=== PATIENT | male | born 1985 | race Caucasian/White ===

== ENCOUNTER 2017-02-26 19:29 | Emergency (ER) | payer OTHER | END 2017-02-26 21:54 | disposition left against medical advice (07) | LOC: UCCORT 19:29 | DX: L72.9 Follicular cyst of the skin and subcutaneous tissue, unspecified (principal); Z53.21 Procedure and treatment not carried out due to patient leaving prior to being seen by health care provider ==

== ENCOUNTER 2017-02-27 08:40 | Emergency (ER) | payer BC, OTHER ==
--- NOTE | 2017-02-27 09:11 | UC ---
Skin Complaint HPI - HPI Summary HPI Summary: 1 week history of sore nodule on back. History of past I+D of infected sebaceous cyst. - History of Current Complaint Chief Complaint: UCSkin Time Seen by Provider: 02/27/17 09:01 Stated Complaint: SKIN COMPLAINT Hx Obtained From: Patient Onset/Duration: Sudden Onset, Lasting Days - about 7 Onset Severity: Mild Current Severity: Mild Location: Other - left mid back. Character: Raised, Painful Aggravating: Touch Alleviating: Nothing Associated Signs & Symptoms: Positive: Negative Similar Episode/Dx as: infected cyst. - Allergy/Home Medications Allergies/Adverse Reactions: Allergies Allergy/AdvReac Type Severity Reaction Status Date / Time mold Allergy Unknown Uncoded 02/27/17 08:52 Reaction Details pollen Allergy Eyes Uncoded 02/27/17 08:51 Itchy/Swollen/Red/Watery Review of Systems Constitutional: Negative Skin: Negative Eyes: Negative ENT: Negative Respiratory: Negative Cardiovascular: Negative Gastrointestinal: Negative Genitourinary: Negative Motor: Negative Neurovascular: Negative Musculoskeletal: Other: - back injury with chronic pain. Neurological: Negative Psychological: Negative All Other Systems Reviewed And Are Negative: Yes PMH/Surg Hx/FS Hx/Imm Hx Previously Healthy: Yes - chronic back pain post injury Other History Of: Negative For: Anticoagulant Therapy - Surgical History Surgical History: Yes Surgery Procedure, Year, and Place: Vasectomy. Adenoidectomy, pe TUBES,. Epiditecomy. 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 Alcohol Use: Rare Substance Use Type: None Smoking Status (MU): Never Smoked Tobacco - Immunization History Most Recent Influenza Vaccination: no Physical Exam Triage Information Reviewed: Yes Appearance: Well-Appearing, No Pain Distress Vital Signs: Initial Vital Signs Temp 98 F 02/27/17 08:46 Pulse 61 02/27/17 08:46 Resp 18 02/27/17 08:46 BP 125/79 02/27/17 08:46 Vital Signs Reviewed: Yes Respiratory: Positive: Lungs clear, Normal breath sounds Cardiovascular: Positive: RRR, No Murmur Neurological Exam: Normal Neurological: Positive: Alert Psychological Exam: Normal Skin Exam: Other - left midback, 1.5cm area of erthema with nodule, moderate induration. Not at optimal stage for I+D. Course/Dx - Course Course Of Treatment: hot compress area until ready for I+D - Differential Diagnoses - Skin Complaint Differential Diagnoses: Cellulitis, Other - abscess - Diagnoses Provider Diagnoses: forming abscess mid back. Discharge - Discharge Plan Condition: Stable Disposition: HOME Patient Education Materials: Abscess (ED) Additional Instructions: The abscess on your back is not at an optimal time for incision and drainage. As discussed, you will return on Friday morning for I+D. There is not significant cellulitis and you do not need antibiotics at this time. Compress the area for 10 to 15 minutes with hot compresses 3 or 4 times per day.
[2017-02-27 09:20] VITALS: BP 125/79
== END 2017-02-27 09:31 | disposition home or self-care (01) ==
LOC: UCCORT 08:40
DX: L02.212 Cutaneous abscess of back [any part, except buttock and flank] (principal)
CPT/HCPCS: 99211; G0463

== ENCOUNTER 2017-03-02 18:36 | Emergency (ER) | payer BC ==
[2017-03-02 19:23] VITALS: BP 107/61
--- NOTE | 2017-03-02 20:02 | UC ---
Skin Complaint HPI - History of Current Complaint Chief Complaint: UCSkin Time Seen by Provider: 03/02/17 19:56 Stated Complaint: SKIN COMPLAINT Hx Obtained From: Patient Onset/Duration: Gradual Onset - over the past week, abscess on his back, Lasting Weeks - 1, Worse Since - onset Timing: Constant Onset Severity: Mild Current Severity: Moderate Location: Discrete - left middle lower back Character: Swelling, Pruritus Aggravating: Nothing Alleviating: Nothing Associated Signs & Symptoms: Negative: Fever, Chills, Drainage, Tenderness Similar Episode/Dx as: Boil - Allergy/Home Medications Allergies/Adverse Reactions: Allergies Allergy/AdvReac Type Severity Reaction Status Date / Time mold Allergy Unknown Uncoded 03/02/17 19:18 Reaction Details pollen Allergy Eyes Uncoded 03/02/17 19:18 Itchy/Swollen/Red/Watery Review of Systems All Other Systems Reviewed And Are Negative: Yes PMH/Surg Hx/FS Hx/Imm Hx Previously Healthy: Yes Other History Of: Negative For: Anticoagulant Therapy - Surgical History Surgical History: Yes Surgery Procedure, Year, and Place: Vasectomy. Adenoidectomy, pe TUBES,. Epiditecomy. Undescended Testicles as a child - Family History Known Family History: Positive: None, Other - Prostate cancer, asthma - Social History Occupation: Employed Full-time Lives: With Family Alcohol Use: Weekly Substance Use Type: None Smoking Status (MU): Never Smoked Tobacco Have You Smoked in the Last Year: No - Immunization History Most Recent Influenza Vaccination: no Physical Exam Triage Information Reviewed: Yes Appearance: Well-Appearing, No Pain Distress, Well-Nourished Vital Signs: Initial Vital Signs Temp 98.1 F 03/02/17 19:19 Pulse 55 03/02/17 19:19 Resp 16 03/02/17 19:19 BP 107/61 03/02/17 19:19 Pulse Ox 98 03/02/17 19:19 Vital Signs Reviewed: Yes Eyes: Positive: Conjunctiva Clear Neck exam: Normal Respiratory Exam: Normal Cardiovascular Exam: Normal Musculoskeletal Exam: Normal Neurological Exam: Normal Psychological Exam: Normal Skin: Positive: Other - 2.5x1.5 cm soft nodule in the left middle lower back, Non-tender, minimal redness. Course/Dx - Differential Diagnoses - Skin Complaint Differential Diagnoses: Abscess, Allergic Reaction, Cellulitis - Diagnoses Provider Diagnoses: Abscess posterior thorax. Discharge - Discharge Plan Condition: Stable Disposition: HOME Prescriptions: Sulfamethox/Trimethoprim DS* [Bactrim DS 800/160 TAB*] 1 tab PO BID #14 tab Patient Education Materials: Furunculosis and Carbunculosis (ED), Sulfamethoxazole/Trimethoprim (By mouth) Additional Instructions: Do warm packs on it at least twice a day.
[2017-03-02] MEDS ORDERED: Sulfamethox/Trimethoprim DS 800/160* TAB PO ONE (20:15)
== END 2017-03-02 20:25 | disposition home or self-care (01) ==
LOC: UCCORT 18:36
DX: L02.212 Cutaneous abscess of back [any part, except buttock and flank] (principal); T78.40XA Allergy, unspecified, initial encounter; X58.XXXA Exposure to other specified factors, initial encounter; L03.312 Cellulitis of back [any part except buttock and flank]
CPT/HCPCS: 99212; A9270-GY; G0463

== ENCOUNTER 2017-06-07 12:49 | Emergency (ER) | payer BC ==
[2017-06-07 16:13] VITALS: BP 118/67
--- NOTE | 2017-06-07 16:47 | UC ---
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 There is a red, spotted rash on the area behind his R ear. Pt states rash is "burning in sensation, sometimes itchy ". He has been using a steroid cream today that has been helping." Here with his Maria M who works at our facility. she is concerned about spider bite. dtr had similar thing and required prednisone oral to treat and requests the same. Used clobetisol topical with relief per Jay. denies swelling in lips, gums or throat. no cp or sob. no diarrhea. feels fine o/w. Leaving for [place] in AM and concerned about things worsening. [ End ] - History of Current Complaint Chief Complaint: UCSkin Time Seen by Provider: 06/07/17 16:12 Stated Complaint: BUG BITE/SKIN COMPLAINT NECK - Allergy/Home Medications Allergies/Adverse Reactions: Allergies Allergy/AdvReac Type Severity Reaction Status Date / Time mold Allergy Unknown Uncoded 03/02/17 19:18 Reaction Details pollen Allergy Eyes Uncoded 03/02/17 19:18 Itchy/Swollen/Red/Watery Home Medications: Home Medications Clobetasol Propionate 0.05 % EX DAILY 06/07/17 [History Confirmed 06/07/17] Review of Systems Constitutional: Negative Skin: Rash Eyes: Negative ENT: Negative Respiratory: Negative Cardiovascular: Negative Gastrointestinal: Negative Genitourinary: Negative Motor: Negative Neurovascular: Negative Musculoskeletal: Negative Neurological: Negative Psychological: Negative Is Patient Immunocompromised?: No All Other Systems Reviewed And Are Negative: Yes PMH/Surg Hx/FS Hx/Imm Hx Previously Healthy: Yes Other History Of: Negative For: Anticoagulant Therapy - Surgical History Surgical History: Yes Surgery Procedure, Year, and Place: Vasectomy. Adenoidectomy, pe TUBES,. Epiditecomy. Undescended Testicles as a child - Family History Known Family History: Positive: Other - Prostate cancer, asthma - Social History Alcohol Use: Weekly Substance Use Type: None Smoking Status (MU): Never Smoked Tobacco Have You Smoked in the Last Year: No - Immunization History Most Recent Influenza Vaccination: no Physical Exam Triage Information Reviewed: Yes Appearance: Well-Appearing, No Pain Distress, Well-Nourished Vital Signs: Initial Vital Signs Temp 99.7 F 06/07/17 16:07 Pulse 66 06/07/17 16:07 Resp 14 06/07/17 16:07 BP 118/67 06/07/17 16:07 Pulse Ox 99 06/07/17 16:07 Vital Signs Reviewed: Yes Eye Exam: Normal ENT Exam: Normal ENT: Positive: Other: - no swelling of lips, tongue or uvula. Neck exam: Normal Neck: Positive: Supple, Nontender, No Lymphadenopathy, Other: - right posterior neck with very mild area of patchy erythema in streak like fasion, about 2 inches long total. cool to touch, no streaks, no d/c. no pustules or vessicles. skin intact. Respiratory Exam: Normal Respiratory: Positive: Lungs clear, Normal breath sounds, No respiratory distress Cardiovascular Exam: Normal Cardiovascular: Positive: RRR, No Murmur Abdomen Description: Positive: Nontender, Soft Musculoskeletal Exam: Normal Neurological Exam: Normal Psychological Exam: Normal Skin: Positive: Other - see above Course/Dx - Course Course Of Treatment: mild dermatitis from bug bite. treat with low dose medrol dose pack is reasonable as they are going [facility]. - Differential Diagnoses - Skin Complaint Differential Diagnoses: Anaphylaxis, Urticaria - Diagnoses Provider Diagnoses: dermatitis, bug bite Discharge - Discharge Plan Condition: Stable Disposition: HOME Prescriptions: Methylprednisolone [Medrol Dosepak 4 MG*] 4 mg PO DAILY #1 maren Patient Education Materials: Dermatitis (ED) [facility]Provider [facility]] - 1 Week No Primary Care Phys,NOPCP [Primary Care Provider] - Additional Instructions: We discussed risks of prednisone including but not limited to anxiety, agitation , insomnia, GI upset, elevated blood pressures and blood sugar readings, adrenal crisis and avascular necrosis of the hip.
== END 2017-06-07 16:53 | disposition home or self-care (01) ==
LOC: UCCORT 12:49
DX: L30.9 Dermatitis, unspecified (principal); W57.XXXA Bitten or stung by nonvenomous insect and other nonvenomous arthropods, initial encounter; Y93.H2 Activity, gardening and landscaping; Y92.007 Garden or yard of unspecified non-institutional (private) residence as the place of occurrence of the external cause; Y99.9 Unspecified external cause status
CPT/HCPCS: 99212; G0463

== ENCOUNTER 2018-04-22 14:51 | Emergency (ER) | payer BC, OTHER ==
[2018-04-22 15:19] VITALS: BP 116/75
--- NOTE | 2018-04-22 15:31 | UC ---
Upper Extremity HPI - HPI Summary HPI Summary: This patient is a 32 year old MF presenting to [facility] with a chief complaint of muscular tightness in left forearm that began four days ago. Pt reports that he was splitting firewood four days ago, when pain began. The patient rates the pain 3/10 in severity. Symptoms aggravated by movement and lifting. Symptoms alleviated by nothing. Patient reports tingling-like sensation. Patient denies numbness. - History of Current Complaint Chief Complaint: UCUpperExtremity Stated Complaint: FOREARM PAIN Time Seen by Provider: 04/22/18 15:23 Hx Obtained From: Patient Onset/Duration: Sudden Onset, Lasting Days, Still Present Severity Initially: Mild Severity Currently: Mild Pain Intensity: 3 Pain Scale Used: 0-10 Numeric Location Of Pain: Is Discrete @ - Left forearm Aggravating Factor(s): Movement, Lifting Alleviating Factor(s): Nothing Associated Signs And Symptoms: Positive: Other - Positive tingling-like sensation. Negative numbness - Allergies/Home Medications Allergies/Adverse Reactions: Allergies Allergy/AdvReac Type Severity Reaction Status Date / Time mold Allergy Unknown Uncoded 04/22/18 15:19 Reaction Details pollen Allergy Eyes Uncoded 04/22/18 15:19 Itchy/Swollen/Red/Watery PMH/Surg Hx/FS Hx/Imm Hx Previously Healthy: No GI/ History: Gastroesophageal Reflux Neurological History: Migraine Other History Of: Negative For: Anticoagulant Therapy - Surgical History Surgical History: Yes Surgery Procedure, Year, and Place: Vasectomy. Adenoidectomy, pe TUBES,. Epiditecomy. Undescended Testicles as a child - Family History Known Family History: Positive: Other - Prostate cancer, asthma - Social History Occupation: Employed Full-time Lives: With Family Alcohol Use: Weekly Alcohol Amount: 1-2 per week Substance Use Type: None Smoking Status (MU): Never Smoked Tobacco Have You Smoked in the Last Year: No - Immunization History Most Recent Influenza Vaccination: no Review of Systems Musculoskeletal: Other: - Positive left forearm pain Neurological: Other - Positive tingling-like sensation. Negative numbness All Other Systems Reviewed And Are Negative: Yes Physical Exam - Summary Physical Exam Summary: General: well-appearing, no pain distress Skin: warm, color reflects adequate perfusion, dry Head: normal Eyes: EOMI, JOSE DANIEL ENT: normal Neck: supple, nontender Respiratory: CTA, breath sounds present Cardiovascular: RRR Abdomen: soft, nontender Bowel: present Musculoskeletal: Tender to palpation left arm over the distal radius. Positive Finkelsteins test. Pain with both wrist ulnar flexion and radial flexion. Wrist pain with abduction and adduction. Strength/ROM intact Neurological: sensory/motor intact, A&O x3 Psychological: affect/mood appropriate Triage Information Reviewed: Yes Vital Signs: Initial Vital Signs Temp 98.5 F 04/22/18 15:16 Pulse 65 04/22/18 15:16 Resp 18 04/22/18 15:16 BP 116/75 04/22/18 15:16 Pulse Ox 100 04/22/18 15:16 Vital Signs Reviewed: Yes Upper Extremity Course/Dx - Course Course Of Treatment: THUMB SPICA SLPINT PLACED BY NURSING IN CLINIC. NEUROVASULAR INTACT AFTER PLACEMENT. F/U SPORTS MEDICINE. - Differential Dx/Diagnosis Provider Diagnoses: LEFT WRIST TENOSYNOVITIS Discharge - Sign-Out/Discharge Documenting (check all that apply): Patient Departure - Discharge Plan Condition: Stable Disposition: HOME Patient Education Materials: Tenosynovitis (ED) Referrals: Vishal Damon [Medical Doctor] - Dalton Long MD [Primary Care Provider] - Additional Instructions: FOLLOW UP WITH DR DAMON, SPORTS MEDICINE. GET RECHECKED FOR ANY WORSENING OF YOUR CONDITION OR QUESTIONS OR CONCERNS. - Billing Disposition and Condition Condition: STABLE Disposition: Home Attestation Statement Scribe Attestation: This is luigi Carranza documenting for Luke Reece MD. User Type: Provider with Scribe Provider Attestation: The documentation recorded by the scribe accurately reflects the service I personally performed and the decisions made by me.
== END 2018-04-22 15:52 | disposition home or self-care (01) ==
LOC: UCEAST 14:51
DX: M65.832 Other synovitis and tenosynovitis, left forearm (principal)
CPT/HCPCS: 99212; G0463

== ENCOUNTER 2018-06-19 15:12 | Emergency (ER) | payer BC, OTHER ==
[2018-06-19 15:28] VITALS: BP 113/75
--- NOTE | 2018-06-19 15:39 | UC ---
Back Pain HPI - HPI Summary HPI Summary: 32 y/o male presents to the urgent care c/o pt had a work related back injury in 2009, and has had back problems since then. he has on and off flare ups of his back pain since then. Today - two hours ago he bent over and picked something up, and his back pain pain flared up again. Pt just left the chiropracter, which didn't help. He also gets injections at the pain clinic - he will get another one of those when he can get an appointment. - History of Current Complaint Chief Complaint: UCBackPain Stated Complaint: BACK INJURY Time Seen by Provider: 06/19/18 15:38 Hx Obtained From: Patient Onset/Duration: Gradual Onset, Lasting Weeks - chronic back pain exacerbated for the past month, Still Present, Worse Since - 2 days Timing: Constant Severity Initially: Mild Severity Currently: Moderate Pain Intensity: 7 Pain Scale Used: 0-10 Numeric Back Pain: Is Discrete @ - lower back, Radiates To - left lower leg Character: Sharp, Spasmodic Aggravating Factor(s): Movement, Lifting, Bending Alleviating Factor(s): Rest, OTC Meds Associated Signs And Symptoms: Positive: Negative. 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 - Risk Factors AAA Risk Factors: Negative TAD Risk Factors: Negative Cauda Equina Risk Factors: Negative Epidural Abscess Risk Factors: Negative - Allergies/Home Medications Allergies/Adverse Reactions: Allergies Allergy/AdvReac Type Severity Reaction Status Date / Time mold Allergy Unknown Uncoded 06/19/18 15:29 Reaction Details pollen Allergy Eyes Uncoded 06/19/18 15:29 Itchy/Swollen/Red/Watery Home Medications: Home Medications Naproxen Sodium [Aleve] 220 mg PO 06/19/18 [History] PMH/Surg Hx/FS Hx/Imm Hx Other History Of: Negative For: Anticoagulant Therapy - Surgical History Surgical History: Yes Surgery Procedure, Year, and Place: Vasectomy. Adenoidectomy, pe TUBES,. Epiditecomy. Undescended Testicles as a child - Family History Known Family History: Positive: Other - Prostate cancer, asthma - Social History Alcohol Use: Weekly Alcohol Amount: 1-2 per week Substance Use Type: None Smoking Status (MU): Never Smoked Tobacco Have You Smoked in the Last Year: No - Immunization History Most Recent Influenza Vaccination: no Physical Exam - Summary Physical Exam Summary: Vital Signs Reviewed: Yes Appearance: Well-Appearing, Well-Nourished, male sitting in the examining table w/o any apparent distress. Eyes: Positive: Conjunctiva Clear - PERRLA, EOMI. ENT: Positive: Normal ENT inspection, Hearing grossly normal, Pharynx normal, TMs normal, Uvula midline Neck: Positive: Supple, Nontender, No Lymphadenopathy Respiratory: Positive: Chest non-tender, Lungs clear, Normal breath sounds, No respiratory distress Cardiovascular: Positive: RRR, No Murmur, Pulses Normal, Brisk Capillary Refill Abdomen Description: Positive: Nontender, No Organomegaly, Soft. Negative: CVA Tenderness (R), CVA Tenderness (L) Bowel Sounds: Positive: Present Musculoskeletal: Positive: Strength Intact, BACK: Patient walked into the urgent care room with symmetric ambulation, No signs of limping, antalgic, able to bear weight. No signs of trauma, No masses palpated. Point tenderness at the level of L5-S1, No CVAT, no flank ecchymosis . No sacroiliac notch tenderness, No saddle anesthesia.ROM: limited due to pain, Straight Leg Raise: negative. Patellar reflexes: brisk, symmetric Muscle strength lower extremities. Dorsiflexion/ plantar flexion of ankles. Heel/ toe walk. Lower extremities: Femoral, popliteal, posterior tibial, and dorsalis pedis pulses WNL. Pt refuse rectal exam Neurological: Positive: Alert, Muscle Tone Normal Psychological Exam: Normal Skin Exam: Normal Triage Information Reviewed: Yes Vital Signs: Initial Vital Signs Temp 98.4 F 06/19/18 15:24 Pulse 61 06/19/18 15:24 Resp 14 06/19/18 15:24 BP 113/75 06/19/18 15:24 Pulse Ox 99 06/19/18 15:24 Back Pain Course/Dx - Differential Dx/Diagnosis Differential Diagnosis/HQI/PQRI: Arthritis, Herniated Disc, Strain, Sprain, Other - muscle spasm Provider Diagnoses: 1- Chronic back pain s/p injury at work. 2- Acute back spasm Discharge - Sign-Out/Discharge Documenting (check all that apply): Patient Departure - D/c home All imaging exams completed and their final reports reviewed: No Studies - Discharge Plan Condition: Stable Disposition: HOME Prescriptions: Methocarbamol TAB* [Robaxin 500 MG TAB*] 750 mg PO QID PRN #12 tab PRN Reason: Spasms - Muscle methylPREDNISolone [Medrol Dosepak 4 MG*] 4 mg PO .SEE LELE INSTRUCTION #1 lele Patient Education Materials: Muscle Spasm (ED), Chronic Back Pain (ED) Forms: *Work Release Referrals: Dalton Long MD [Primary Care Provider] - 3 Days Glen Martinez MD [Medical Doctor] - 1 Day Additional Instructions: 1- Please continue taking your Pain medications as directed after meals for pain by Dr Gong. 2- Take Robaxin PO and Medrol dose lele PO as directed for muscle spasm. Please do not drive while taking the medication. 3- Wear a back support. Avoid strenuous exercise of heavy lifting. 4- Please follow up with Dr Martinez for further management in your chronic back pain. - Billing Disposition and Condition Condition: STABLE Disposition: Home
== END 2018-06-19 16:36 | disposition home or self-care (01) ==
LOC: UCEAST 15:12
DX: M54.9 Dorsalgia, unspecified (principal); G89.29 Other chronic pain; M62.830 Muscle spasm of back; Z91.09 Other allergy status, other than to drugs and biological substances; Z87.828 Personal history of other (healed) physical injury and trauma
CPT/HCPCS: 99212; G0463